=== PATIENT | female | born 1950 | race Caucasian/White ===

== ENCOUNTER 2020-01-16 07:09 | Day surgery (SDC) | payer OTHER ==
[~2020-01-16 07:09] MED LIST: ARMOUR THYROID30 M1 PO
== END 2020-01-16 17:40 | disposition home or self-care (01) ==
LOC: CIR.AMB 07:09
PROVIDERS: ATTEND Surgery
DX: C50.312 Malignant neoplasm of lower-inner quadrant of left female breast (principal); Z20.828 Contact with and (suspected) exposure to other viral communicable diseases

== ENCOUNTER 2021-01-19 11:37 | Inpatient (IN) | payer OTHER ==
[~2021-01-19] VITALS: Ht 157.5 cm; Wt 47.6 kg
--- NOTE | 2021-01-19 11:52 | NUR ---
SE RECIBE PACIENTE ALERTA Y ORIENTADA X3 QUIEN REFIERE HABERSE CAIDO EN [place] 10 OLIVEIRA. REFIERE TENER DOLOR LEVE DE CINTURA Y A RAIZ DE LA CAIDA HAY QUE ASISTIRLA AL CAMINAR. SE REALIZAN S/V. Y SE UBICA EN OBSERVACION.
--- NOTE | 2021-01-19 13:15 | NUR ---
SE RECIBE PTE FEMENANINA DE 70 YRS ALERTA CONCIENTE Y TRANQUILA EN COMPANIA DE FAMILAR. PTE ES EVALUADA POR LA KEVIN, RENTA QUIEN ORDENA TRATAMIENTO LA CUAL S EJECUTA. SE MANTIENE BAJO OBSERVACION.
--- NOTE | 2021-01-19 17:14 | NUR ---
SE ORIENTA A PACIENTE SOBRE TRATAMIENTO ORDENADO POR DRA. CHRISTENSEN, LA MISMA VERBALIZA ENTENDER. SE COLECTAN MUESTRAS ORDENADAS HACIENDO USO DE MEDIDAS ASEPTICAS CORRRESPONDIENTES. PENDIENTE RESULTADOS DE LABORATORIOS.
--- NOTE | 2021-01-19 20:00 | NUR ---
SE ORIENTA A PACIENTE SOBRE TRATAMIENTO ORDENADO POR DRA. CHRISTENSEN, LA MISMA VERBALIZA ENTENDER. SE COLOCA SONDA URINARIA PATENTE #16 COLECTANDO ORINA A GRAVEDAD COLOR AMARILLA. AL MOMENTO DE LA COLOCACION PACIENTE DRENA 300ML DE ORINA. SE FIJA CATETER Y SE ROTULA ADECUADAMENTE. SE MANTIENE PACIENTE EN OBSERVACION POR CAMBIOS.
[2021-01-24] MEDS ORDERED: ELIQUIS2.5 MG PO (10:22)
[2021-01-24] MEDS ORDERED: OXYC1TAB9 PO (10:23)
[2021-01-24] MEDS ORDERED: PANTOPRAZOLE SO40 MG PO (10:23)
[2021-01-24] MEDS ORDERED: INTEGRA F CAPS1 EACH PO (10:23)
== END 2021-01-25 16:16 | DRG 522 ==
LOC: ER 11:37 → SEC-K 22:53 → SURH 22:53 → O/R 01-20 17:32 → SURH 01-20 20:08 → O/R 01-21 16:24 → SURH 01-21 16:27
PROVIDERS: ADMIT Orthopaedic Surgery; ATTEND Orthopaedic Surgery
PROC: 0SRR039 Replacement of Right Hip Joint, Femoral Surface with Ceramic Synthetic Substitute, Cemented, Open Approach (ICD-10-PCS; principal; 2021-01-20 15:00)
PROC: 30233N1 Transfusion of Nonautologous Red Blood Cells into Peripheral Vein, Percutaneous Approach (ICD-10-PCS; 2021-01-23)
DX: S72.041A Displaced fracture of base of neck of right femur, initial encounter for closed fracture (principal); D62 Acute posthemorrhagic anemia; M16.11 Unilateral primary osteoarthritis, right hip; C50.812 Malignant neoplasm of overlapping sites of left female breast; E03.8 Other specified hypothyroidism; G20 Parkinson's disease; Z20.822 Contact with and (suspected) exposure to COVID-19; W18.39XA Other fall on same level, initial encounter; Y93.89 Activity, other specified; Y92.89 Other specified places as the place of occurrence of the external cause; Y99.8 Other external cause status; Z17.0 Estrogen receptor positive status [ER+]

== ENCOUNTER 2021-06-28 13:40 | Inpatient (IN) | payer OTHER ==
[~2021-06-28] VITALS: Ht 157.5 cm; Wt 48.1 kg
[~2021-06-28 13:40] MED LIST changes: +ELIQUIS2.5 MG PO; +INTEGRA F CAPS1 EACH PO; +OXYC1TAB9 PO; +PANTOPRAZOLE SO40 MG PO
[2021-07-01] MEDS ORDERED: CIPRO500 MG PO (08:22)
[2021-07-01] MEDS ORDERED: ELIQUIS2.5 MG PO (08:22)
[2021-07-01] MEDS ORDERED: PERCOCET 5-3251 EACH PO (08:22)
== END 2021-07-01 22:52 | DRG 522 ==
LOC: ER 13:40 → SURH 18:53 → SEC-K 18:53 → SURH 19:42
PROVIDERS: ADMIT Orthopaedic Surgery; ATTEND Orthopaedic Surgery
PROC: 0SRS0J9 Replacement of Left Hip Joint, Femoral Surface with Synthetic Substitute, Cemented, Open Approach (ICD-10-PCS; principal; 2021-06-28)
PROC: 0MBM0ZZ Excision of Left Hip Bursa and Ligament, Open Approach (ICD-10-PCS; 2021-06-28)
DX: S72.032A Displaced midcervical fracture of left femur, initial encounter for closed fracture (principal); D62 Acute posthemorrhagic anemia; M80.052A Age-related osteoporosis with current pathological fracture, left femur, initial encounter for fracture; M70.62 Trochanteric bursitis, left hip; M16.12 Unilateral primary osteoarthritis, left hip; G20 Parkinson's disease; W18.09XA Striking against other object with subsequent fall, initial encounter

== ENCOUNTER 2022-07-23 17:02 | Emergency (ER) | payer OTHER ==
[~2022-07-23] VITALS: Ht 154.9 cm; Wt 48.1 kg
[~2022-07-23 17:02] MED LIST changes: +CIPRO500 MG PO; +PERCOCET 5-3251 EACH PO
[2022-07-23] MEDS ORDERED: ANASTROZOLE1 MG PO (17:17)
[2022-07-23] MEDS ORDERED: MUCUNA (17:18)
[2022-07-23] MEDS ORDERED: PROLIA60 MG/1 ML (17:23)
== END 2022-07-23 22:14 | disposition home or self-care (01) ==
LOC: ER 17:02
DX: M25.59 Pain in other specified joint (principal); E05.80 Other thyrotoxicosis without thyrotoxic crisis or storm; Z88.0 Allergy status to penicillin; Z88.6 Allergy status to analgesic agent

== ENCOUNTER 2023-08-25 15:01 | Emergency (ER) | payer OTHER ==
[~2023-08-25] VITALS: Ht 157.5 cm; Wt 49.0 kg
[~2023-08-25 15:01] MED LIST changes: +ANASTROZOLE1 MG PO; +MUCUNA; +PROLIA60 MG/1 ML
[2023-08-25] MEDS ORDERED: ACETAMINOPHEN 500 MG GEL..CAP PO STA (17:28)
[2023-08-25] MEDS ORDERED: 8 HOUR PAIN RE650 M1 PO (20:23)
== END 2023-08-25 20:41 | disposition home or self-care (01) ==
LOC: ER 15:02
DX: S09.8XXA Other specified injuries of head, initial encounter (principal); W19.XXXA Unspecified fall, initial encounter; Y93.89 Activity, other specified; Y92.098 Other place in other non-institutional residence as the place of occurrence of the external cause; Y99.8 Other external cause status; E03.8 Other specified hypothyroidism; Z88.0 Allergy status to penicillin; Z88.6 Allergy status to analgesic agent